=== PATIENT | male | born 1975 | race Caucasian/White ===

== ENCOUNTER 2017-03-07 06:19 | Emergency (ER) | payer SELFPAY ==
[~2017-03-07] VITALS: Ht 180.3 cm; Wt 65.8 kg
[~2017-03-07 06:19] MED LIST: ANTIBIOTIC O500 U/GM TP; KEFLEX500 M1 PO; MOTRIN800 MG PO; NAPROSYN500 MG PO
[2017-03-07] MEDS ORDERED: DOXYCYCLINE HY100 M3 PO (06:55)
== END 2017-03-07 07:19 | disposition home or self-care (01) ==
LOC: ED 06:19
DX: S30.851A Superficial foreign body of abdominal wall, initial encounter (principal); X58.XXXA Exposure to other specified factors, initial encounter; Y93.9 Activity, unspecified; Y92.9 Unspecified place or not applicable; Y99.9 Unspecified external cause status

== ENCOUNTER 2018-02-01 17:23 | Emergency (ER) | payer SELFPAY ==
[~2018-02-01] VITALS: Wt 68.0 kg
[~2018-02-01 17:23] MED LIST changes: +DOXYCYCLINE HY100 M3 PO
[2018-02-01] MEDS ORDERED: CEPHALEXIN500 M1 PO (17:35)
== END 2018-02-01 17:52 | disposition home or self-care (01) ==
LOC: ED 17:23
DX: T23.261A Burn of second degree of back of right hand, initial encounter (principal); X08.8XXA Exposure to other specified smoke, fire and flames, initial encounter; Y93.89 Activity, other specified; Y92.099 Unspecified place in other non-institutional residence as the place of occurrence of the external cause; Y99.9 Unspecified external cause status

== ENCOUNTER → 2018-02-07 | Outpatient (CLI) | payer SELFPAY ==
[~2018-02-07] MED LIST changes: +CEPHALEXIN500 M1 PO
== END | disposition home or self-care (01) ==
LOC: RESCLI 00:32
DX: S61.401D Unspecified open wound of right hand, subsequent encounter (principal); X58.XXXD Exposure to other specified factors, subsequent encounter